=== PATIENT | male | born 1950 | race Caucasian/White ===

== ENCOUNTER 2017-10-08 13:27 | Outpatient (CLI) | payer MEDICARE, OTHER ==
--- NOTE | 2017-10-08 16:15 | MRI ---
MRI OF THE LEFT SHOULDER WITHOUT CONTRAST 10/08/17 INDICATION: Left shoulder pain after fall three to four weeks ago with limited range of motion. TECHNIQUE: Multiplanar and multisequence MR images were obtained in the left shoulder without IV contrast. Motio n artifact limit image detail. FINDINGS: There is mild tendinosis of the supraspinatus and infraspinatus. There is a low grade partial thickne ss articular surface tear involving the anterior supraspinatus at the footprint measuring 8.0 x 0.7 c m. No full thickness tear is demonstrated. The visualized biceps anchor complex appears intact. There is subtle increased T2 signal involving the capsule of the axillary pouch. The visualized inferior g lenohumeral labral ligamentous complex intact. The lone head of the biceps tendon is located. No para labral cyst is evident. AC joint appears within normal limits. No muscular atrophy is evident. there are degenerative subchondral cyst-like abnormality involving the greater tuberosity. The glenohumeral articular surface appears within normal limits. IMPRESSION: 1. Partial thickness articular surface tearing involving the anterior supraspinatus at the footp rint superimposed on mild supraspinatus and infraspinatus tendinosis. 2. Slight increased T2 signal involving the capsule of the axillary pouch can be seen with adhes sanchez capsulitis. POS: [facility]
== END 2017-10-08 13:28 | disposition home or self-care (01) ==
LOC: SCSMRI 13:27
PROVIDERS: ATTEND Orthopaedic Surgery
DX: M25.512 Pain in left shoulder (principal); M75.102 Unspecified rotator cuff tear or rupture of left shoulder, not specified as traumatic; M75.92 Shoulder lesion, unspecified, left shoulder

== ENCOUNTER 2017-11-19 19:30 | Emergency (ER) | payer MEDICARE, OTHER ==
[2017-11-19] MEDS ORDERED: Adacel (T-DAP) 0.5 ML VIAL ONE (19:59)
--- NOTE | 2017-11-19 20:22 | RAD ---
RIGHT FOOT THREE VIEWS: 11/19/17 HISTORY: Stepped on a nail. No radiopaque foreign bodies are seen or underlying evidence of fracture. IMPRESSION: No evidence of fracture or metallic foreign body. POS: [facility]
[2017-11-19] MEDS ORDERED: Bacitracin Zinc 1 Packet ONE (20:33)
== END 2017-11-19 20:30 | disposition home or self-care (01) ==
LOC: SCSER 19:30
DX: S91.331A Puncture wound without foreign body, right foot, initial encounter (principal); Z23 Encounter for immunization; W45.0XXA Nail entering through skin, initial encounter
CPT/HCPCS: 90471; 90715

== ENCOUNTER 2017-11-22 12:57 | Emergency (ER) | payer MEDICARE, OTHER ==
--- NOTE | 2017-11-22 13:50 | RAD ---
2 VIEW CHEST: Date: 11/22/17 No prior comparison. CLINICAL INDICATION: Cough for 4 weeks. FINDINGS: There is mild hyperinflation of the lungs. Linear density at the left lung base may be related to sca r or atelectasis. The cardiac silhouette is at upper limits of normal in size. No significant vascula r congestion. There is osseous degenerative change. IMPRESSION: 1. Mild left basilar density, which may be related to scar or volume loss. 2. Mild hyperinflation of lungs may reflect component of COPD. Correlate clinically. POS: [facility]
== END 2017-11-22 14:00 | disposition home or self-care (01) ==
LOC: SCSER 12:57
DX: J20.9 Acute bronchitis, unspecified (principal)
CPT/HCPCS: 71046; 94664